=== PATIENT | female | born 1965 | race Caucasian/White ===

== ENCOUNTER 2021-07-17 01:14 | Day surgery (SDC) | payer BC, SELFPAY ==
[2021-07-09 13:28] VITALS: BMI 29.2
[2021-07-17 06:25] VITALS: BP 145/100; PULSE 117; RESP 20; TEMP 36.6; O2SAT 98
[2021-07-17] MEDS: LACTATED RINGERS 1,000 ML 150 ML IV CONT (06:36)
--- NOTE | 2021-07-17 07:27 | P.CONGI_ITS ---
Assessment and Plan Assessment and plan (1) Encounter for screening colonoscopy: Code(s): Z12.11 - Encounter for screening for malignant neoplasm of colon Status: Acute Assessment and Plan: patient presents today for screening colonoscopy. She appears to be at average risk for colon polyps. Further recommendations will be given after endoscopy. GI Consult Note Consult date/time: 07/17/21 07:27 Reason for consult: Neoplasia screening. HPI: Roosevelt Kraft is a 56 year old female Referred for neoplasia screening. Patient current weight appetite and bowel movements are normal. She denies abdominal pain. She has had no bleeding. Family history is noncontributory. She presents today for screening colonoscopy. Patient has a past medical history of irritable bowel syndrome. Symptoms are well controlled on Elavil 10mg at bedtime Review of Systems Review of Systems: Review of systems noncontributory. [facility] Past Medical History Medical History (Updated 07/17/21 @ 07:28 by Boaz Boucher MD) Hx of migraines Malignant Neoplasm of Thyroid Gland Thyroid disease Family History Family History Father Heart attack Alzheimer disease Heart disease Mother Alzheimer disease Hypertension Mother Depression Anxiety Social History Social History (Updated 04/29/21 @ 10:33 by Salina Mejia MA) Smoking status: Never smoker Alcohol intake: never Substance use: never Substance use type: does not use Living arrangements: with family Spiritual care concerns: No Meds Home Medications and Allergies Home Medications Medication Instructions Recorded Confirmed Type melatonin 3 mg capsule 3 mg PO DAILY 10/18/19 07/09/21 History levothyroxine 88 mcg tablet 88 mcg PO DAILY thyroid cancer 90 03/11/21 07/09/21 Rx days #90 tabs amitriptyline 10 mg tablet 10 mg PO DAILY #90 tabs 05/05/21 07/09/21 Rx Allergies Allergy/AdvReac Type Severity Reaction Status Date / Time ciprofloxacin Allergy Unknown NAUSEA Verified 07/17/21 06:23 Vital Signs Vital Signs - 24 hr 07/17/21 06:25 Temperature 97.9 F Pulse Rate 117 H Respiratory Rate 20 Blood Pressure 145/100 H Pulse Oximetry 98 Oxygen Delivery Room Air Exam Narrative: Physical exam reveals patient to be alert. Vital signs stable. HEENT exam is unremarkable. Patient is anicteric. Lungs are clear to auscultat ion and percussion. Heart is without murmur or extra sounds. Abdominal exam bowel sounds are present soft nontender with no hepatosplenomegaly. Digital external rectal exam is normal.
--- NOTE | 2021-07-17 07:28 | P.PNAN_ITS ---
Anes - Initial Pre Proc Eval Procedure: Operation Date: 07/17/21 07:30 Proposed Procedures p Screening Colonoscopy - Boaz Boucher MD Date/Time: 07/17/21 07:28 Surgeon: Boaz Boucher MD Pre Op Diagnosis: neoplasm screening Patient Data Age: 56 Gender: F Height: 1.6 m Weight: 74.6 kg Last Vital Signs Temp 97.9 F 07/17/21 06:25 Pulse 117 H 07/17/21 06:25 Resp 20 07/17/21 06:25 BP 145/100 H 07/17/21 06:25 Pulse Ox 98 07/17/21 06:25 O2 Del Method Room Air 07/17/21 06:25 Allergies Allergy/AdvReac Type Severity Reaction Status Date / Time ciprofloxacin Allergy Unknown NAUSEA Verified 07/17/21 06:23 Home Medications Medication Instructions Recorded Confirmed Type melatonin 3 mg capsule 3 mg PO DAILY 10/18/19 07/09/21 History levothyroxine 88 mcg tablet 88 mcg PO DAILY thyroid cancer 90 03/11/21 07/09/21 Rx days #90 tabs amitriptyline 10 mg tablet 10 mg PO DAILY #90 tabs 05/05/21 07/09/21 Rx Patient hx anesthesia problems: none Family hx anesthesia problems: none Results Review: All pre-operative results and documents have been reviewed as part of the pre- operative evaluation. [facility] Past Medical History Medical History (Updated 07/17/21 @ 07:28 by Boaz Boucher MD) Hx of migraines Malignant Neoplasm of Thyroid Gland Thyroid disease Family History Family History Father Heart attack Alzheimer disease Heart disease Mother Alzheimer disease Hypertension Mother Depression Anxiety Social History Social History (Updated 04/29/21 @ 10:33 by Salina Mejia MA) Smoking status: Never smoker Alcohol intake: never Substance use: never Substance use type: does not use Living arrangements: with family Spiritual care concerns: No Anes - Eval Final PreProcedure Day of Procedure 07/17/21 07:28 Patient weight: normal Heart: regular rate and rhythm Lungs: clear to auscultation Airway: Mallampati scale class II Neurological: alert and oriented Last oral intake: >/= 8 hours ASA classification: II Emergent: no Anesthetic plan: proceed Anesthesia type and monitoring: general GIVS and standard monitoring Results Review: All pre-operative results and documents have been reviewed as part of the pre- operative evaluation. Informed Consent: The patient's anesthetic plan and its attendant risks and benefits were discussed with the patient/family/POA. Questions were solicited and answers provided to the satisfaction of the patient/family/POA.
[2021-07-17 07:46] VITALS: BP 137/79; PULSE 105; RESP 21; O2SAT 97
[2021-07-17 07:56] VITALS: BP 139/88; PULSE 104; RESP 30; O2SAT 99
[2021-07-17 08:06] VITALS: BP 139/79; PULSE 89; RESP 13; O2SAT 99
--- NOTE | 2021-07-17 09:19 | SUR.PREOP ---
0700: DR HA NOTIFIED OF PT'S VITAL SIGNS, NO FURTHER ORDERS, PT STATES SHE IS A NERVOUS WRECK :
== END 2021-07-17 08:14 | disposition home or self-care (01) ==
PROVIDERS: PCP Nurse Practitioner Family; Visit Provider Internal Medicine Gastroenterology
PROC: 0DJD8ZZ Inspection of Lower Intestinal Tract, Via Natural or Artificial Opening Endoscopic (ICD-10-PCS; CPT 45378; principal; 2021-07-17 07:30)
DX: Z12.11 Encounter for screening for malignant neoplasm of colon (principal); K64.8 Other hemorrhoids; K57.30 Diverticulosis of large intestine without perforation or abscess without bleeding; Z85.850 Personal history of malignant neoplasm of thyroid
CPT/HCPCS: 45378; J2704; J7120